=== PATIENT | male | born 1960 | race Caucasian/White ===

== ENCOUNTER 2018-12-07 11:31 | Outpatient (CLI) | payer OTHER ==
[~2018-12-07] VITALS: Ht 172.7 cm; Wt 84.5 kg
--- NOTE | ~2018-12-07 | HEMODYNAMI ---
PATIENT:VIKI ALBA MEDICAL RECORD: [id number] : 62 LOCATION:[facility] ADMISSION DATE: 12/07/18 Generatedon:12/07/201814:41 Patient name: VIKI ALBA Patient #: [id number] : 1960 Date of study: 12/07/2018 Page: Of Hemodynamic Procedure Report Patient Data Patient Demographics Procedure consent was obtained First Name: VIKI Gender: Male Last Name: ANJALI : 1960 Middle Initial: ERNIE Age: 58 year(s) Patient #: [id number] Race: SSN: [id number] Additional ID: [id number] Contact details Address: [address] [place] [address] State: [place] City: [place] Zip code: [address] Admission Admission Data Admission Date: 12/07/2018 Admission Time: 11:31 Arrival Date: 12/07/2018 Arrival Time: 14:00 Admit Source: Other Insurance Payor: Private health insurance Height (in.): 66 BSA: 1.95 (m2) Height (cm.): 167.64 BMI: 30.51 (kg/m2) Weight (lbs.): 189 Weight (kg.): 85.73 Lab Results Lab Result Date: 12/07/2018 Lab Result Time: 0:00 Biochemistry Name Units Result Min Max BUN mg/dl 15 --(--*-)-- 7 18 Creatinine mg/dl 1.4 --(----)*- 0.6 1.3 eGFR ml/min 55 *-(----)-- 90 120 NONAFRICAN CBC Name Units Result Min Max Hemoglobin g/dl 14.8 --(-*--)-- 13.5 17.5 Procedure Procedure Types Cath Procedure Diagnostic Procedure LHC LHC w/Coronaries Sedation Charges Moderate Sedation up to 15 minutes PCI Procedure Coronary Stent Coronary Stent Initial Procedure Description Procedure Date Procedure Date: 12/07/2018 Procedure Start Time: 14:16 Procedure End Time: 14:39 Procedure Staff Name Function Francis Chen MD Performing Physician Carmelina Gunderson RT Monitor Noy Elizabeth RT Scrub Yvonne Mares RN Nurse Indication Angina Procedure Data Cath Procedure Fluoroscopy Diagnostic fluoroscopy Total fluoroscopy Time: 5.8 time: 5.8 min min Diagnostic fluoroscopy Total fluoroscopy dose: dose: 1157 mGy 1157 mGy Contrast Material Contrast Material Type Amount (ml) Isovue 300 121 Entry Location Entry Primary Successful Side Size Upsize Upsize Entry Closure Gonsalves ccessful Closure Location (Fr) 1 (Fr) 2 (Fr) Remarks Device Remarks Radial Right 6 Fr Mechanical artery Short Compression Estimated blood loss: 5 ml Diagnostic catheters Device Type Used For End Catheter Placement DIAGNOSTIC Robert 110cm Multi-vessel 5Fr catheter ([id number]) Angiography Procedure Complications No complications Procedure Medications Medication Administration Route Dosage 0.9% NaCl I.V. 100 ml/hr Oxygen etCO2 Nasal cannula 2 l/min Lidocaine 2% added to field 20 Heparin Flush Bag added to field 2 bags (1000units/500ml NS) Radial Cocktail added to field 1 syringe (Verapamil 2mg/Nitro 400mcg/Heparin 1500units) Versed I.V. 2 mg Fentanyl I.V. 100 mcg Heparin Bolus I.V. 9500 units Plavix P.O. 600 mg Hemodynamics Rest BSA: 1.95 (m2) HGB: 14.8 (g/dl) O2 Consumption: Estimated: 215.64 (ml/min) O2 Co nsumption indexed: Estimated:110.58 (ml/min/m) Heart Rate: 50 (bpm) Pressure Samples Time Site Value (mmHg) Purpose Heart Use Rate(bpm) 14:20 LV 127/-14,4 Snapshot 76 Gradients Valve Time Site Site Mean SEP/DFP Peak To Heart Use 1 2 (mmHg) (sec/min) Peak Rate (mmHg) (bpm) Aortic 14:21 LV AO 77 Snapshots Pre Cath Intra NCS Post Cath Vital Signs Time Heart Resp SPO2 etCO2 NIBP (mmHg) Rhythm Pain Sedation Rate (ipm) (%) (mmHg) Status Level (bpm) 13:55:29 51 17 98 19 127/87(105) SB 0 (11) 10(A) , No pain 13:59:35 58 14 98 24 121/83(98) SB 0 (11) 10(A) , No pain 14:03:41 57 12 98 27.8 122/81(93) SB 0 (11) 10(A) , No pain 14:07:46 61 12 97 27 120/76(88) NSR 0 (11) 9(A) , No pain 14:11:54 59 12 98 27.8 120/73(95) SB 0 (11) 9(A) , No pain 14:15:58 58 12 96 26.2 114/83(94) SB 0 (11) 9(A) , No pain 14:20:06 71 15 96 25.5 101/66(79) NSR 0 (11) 9(A) , No pain 14:24:05 64 14 98 24.7 107/71(85) NSR 0 (11) 9(A) , No pain 14:28:09 56 13 98 25.5 118/70(91) SB 0 (11) 9(A) , No pain 14:32:17 60 12 96 27 114/72(90) NSR 0 (11) 9(A) , No pain 14:36:23 54 11 97 24.7 115/74(89) NSR 0 (11) 10(A) , No pain Medications Time Medication Route Dose Verified Delivered Reason Not es Effectiveness by by 13:58:27 0.9% NaCl I.V. 100 Francis Yvonne used for ml/hr Gustavo Mares flagger 13:58:33 Oxygen etCO2 2 l/min Francis Yvonne used for Nasal Gustavo Mares procedure cannula RN 13:58:39 Lidocaine 2% added 20ml Francis Francis for local to vial Gustavo Chen MD anesthetic field 13:58:43 Heparin Flush added 2 bags Francis Francis used for Bag to Gustavo Chen MD procedure (1000units/500ml field NS) 13:58:48 Radial Cocktail added 1 Francis Francis used for (Verapamil to syringe Gustavo Chen MD procedure 2mg/Nitro field 400mcg/Heparin 1500units) 14:03:40 Versed I.V. 2 mg Francis Yvonne for sedation Gustavo Mares RN 14:03:51 Fentanyl I.V. 100 mcg Francis Yvonne for sedation Gustavo Mares RN 14:29:43 Heparin Bolus I.V. 9500 Francis Yvonne for hugo ified units Gustavo Mares anticoagulation with Dr. EMELY Chen 14:30:02 Plavix P.O. 600 mg Francis Yvonne for Gustavo Mares antiplatelet RN therapy Procedure Log Time Note 13:39:15 Informed consent obtained and on chart 13:39:21 Diagnostic Cath Status : Elective 13:40:25 Noy Elizabeth RT(R) sent for patient. Start room use. 13:40:26 Indication : Angina 13:42:14 Admit Source: Other 13:42:16 Arrival Date: 12/07/2018 2:00:00 PM 13:42:26 Insurance Payor : Private health insurance 13:42:38 Patient Height : 66 inches 13:42:42 Patient Weight : 189 lbs 13:45:34 Lab Result : BUN 15 mg/dl 13:45:34 Lab Result : eGFR NONAFRICAN 55 ml/min 13:45:34 Lab Result : Creatinine 1.4 mg/dl 13:45:34 Lab Result : Hemoglobin 14.8 g/dl 13:45:42 3a) 45-59 Moderately reduced kidney function. 13:45:53 Maximum allowable contrast dose (3.7 X eGFR X 0.75)152 ml. 13:46:02 ACC Patient presents with Stable Angina CCS Anginal Class 2--Slight limitation of ordinary activity. 13:46:08 ACCPatient has been prescribed/administered the following anti-anginal medication within the last 2 weeks: DOMENICO-Inhibitor 13:47:23 Procedure Status Elective Heart Cath (OP). 13:47:33 Time tracking: Regular hours (M-F 7:00 - 5:00) 13:47:37 Plan of Care:Hemodynamics will remain stable., Cardiac rhythm will remain stable., Comfort level will be maintained., Respiratory function will remain adequate., Patient/ family verbilizes understanding of procedure., Procedure tolerated without complication., Recovers from procedure without complications.. 13:48:17 Patient received from Pre/Post Procedure Room to [facility] 2 Alert and oriented. Tansferred to table in Supine position. 13:48:18 Warm blankets applied, and lavelle hugger turned on for patient comfort. 13:48:18 Correct patient and procedure confirmed by team. 13:48:19 ECG and BP/O2 sat monitors applied to patient. 13:48:20 Vital chart was started 13:56:10 Baseline sample Acquired. 13:56:14 Rhythm: sinus rhythm 13:56:17 Full Disclosure recording started 13:56:21 H&P Date Dictated: 12/07/2018 Within 30 days and on chart., H&P Addendum completed by physician on day of procedure. (MUST COMPLETE FOR ALL OUTPATIENTS). 13:56:23 Pre-procedure instructions explained to patient. 13:56:24 Pre-op teaching completed and patient verbalized understanding. 13:56:33 Family in patients room. 13:56:34 Patient NPO since Midnight. 13:56:35 Is the patient allergic to Iodine/contrast media? No. 13:56:37 Was the patient premedicated? No 13:56:38 Is patient on blood thinner?No 13:56:39 Patient diabetic? No. 13:56:41 Previous problem with sedation/anesthesia? No ? 13:56:43 Snore? Yes 13:56:44 Sleep apnea? No 13:56:44 Deviated septum? No 13:56:45 Opens mouth fully? Yes 13:56:46 Sticks out tongue? Yes 13:56:50 Airway obstruction? No ? 13:56:53 Dentures? No ? 13:56:57 Pre procedure: right dorsailis pedis pulse 2+ Normal; easily identifiable; not easily obliterated 13:56:59 Pre procedure: left dorsailis pedis pulse 2+ Normal; easily identifiable; not easily obliterated 13:57:01 Patient pain scale 0/10 ?. 13:57:08 IV patent on arrival in left forearm with 0.9% NaCl at [facility]. 13:57:10 Lab results completed and on chart. 13:57:15 Right Radial & Right Groin area was prepped with chlora-prep and draped in sterile fashion 13:57:16 Alarms reviewed by R. N. 13:57:16 Sharps counted by scrub and verified by R.N. 13:58:27 0.9% NaCl 100 ml/hr I.V. was administered by Yvonne Mares RN; used for procedure; 13:58:33 Oxygen 2 l/min etCO2 Nasal cannula was administered by Yvonne Mares RN; used for procedure; 13:58:39 Lidocaine 2% 20ml vial added to field was administered by Francis Chen MD; for local anesthetic; 13:58:43 Heparin Flush Bag (1000units/500ml NS) 2 bags added to field was administered by Francis Chen MD; used for procedure; 13:58:48 Radial Cocktail (Verapamil 2mg/Nitro 400mcg/Heparin 1500units) 1 syringe added to field was administered by Francis Chen MD; used for procedure; 14:01:08 Physician arrived 14:01:08 --------ALL STOP TIME OUT------ 14:01:09 Final Timeout: patient, procedure, and site verified with staff and physician. All members of the team are in agreement. 14:01:10 Right Radial & Right Groin site verified by team. 14:01:14 Fire Safety Assessment: A--An alcohol-based skin anteseptic being used preoperatively., C--Open oxygen or nitrous oxide is being used., D--An ESU, laser, or fiber-optic light is being used. 14:01:17 Physical assessment completed. ASA score P 2 - A patient with mild systemic disease as per Francis Chen MD. 14:01:22 Sedation plan: IV Moderate Sedation Medication:Versed, Fentanyl 14:01:39 Use device set Radial Dx or PCI 14:01:40 ACIST Syringe (03439) opened to sterile field. 14:01:41 Medline Cath Pack ([id number]) opened to sterile field. 14:01:41 Bag Decanter () opened to sterile field. 14:01:42 ACIST Hand Control (82599) opened to sterile field. 14:01:44 ACIST Manifold (59964) opened to sterile field. 14:01:45 Tegaderm 4 x 4 (1626W) opened to sterile field. 14:01:46 MBrace Wrist Support (412257201) opened to sterile field. 14:01:48 NEEDLE Cook 21G 4cm Radial (U11770) opened to sterile field. 14:01:50 EMERALD Guide Wire (502-224) opened to sterile field. 14:01:51 SHEATH 6FR RAIN (7487141) opened to sterile field. 14:03:40 Versed 2 mg I.V. was administered by Yvonne Mares RN; for sedation; 14:03:51 Fentanyl 100 mcg I.V. was administered by Yvonne Mares RN; for sedation; 14:16:39 Procedure started. 14:16:43 Local anesthetic to right radial artery with Lidocaine 2% by Francis Chen MD.INITIAL ACCESS ONLY 14:16:53 A 6 Fr Short sheath was inserted into the Right Radial artery 14:18:49 A DIAGNOSTIC Robert 110cm 5Fr catheter (295888) was advanced over the wire and used for Multi-vessel Angiography. 14:20:37 LV hemodynamics recorded. 14:20:38 LV gram done using JACOBS 14:20:42 Injector settings: Ml/sec: 5, Volume: 15, 14:20:54 EF : 60 % 14:21:59 LCA angiography performed. 14:22:01 Injector settings: Ml/sec: 3, Volume: 6, 14:25:03 RCA angiography performed. 14:25:06 Injector settings: Ml/sec: 3, Volume: 6, 14:25:42 Catheter removed. 14:25:42 Proceeding to intervention. 14:26:04 INFLATOR Merit BasixCompak (YU5354) opened to sterile field. 14:26:04 BMW 300cm [place] 2 J wire ([id number]) opened to sterile field. 14:26:05 GUIDE 6FR XBLAD 3.5 catheter ([id number]) opened to sterile field. 14:26:17 ACCDominant side:Right 14:26:25 ACC Pre-intervention BENITA Flow is 3. 14:26:45 Pre PCI Site: [place] pLAD has 80% stenosis. 14:26:56 6 Fr xblad 3.5 guide catheter was inserted over the wire 14:27:50 TUBING High Pressure Extension Tubing (Gustavo) ([id number]) opened to sterile field. 14:28:01 6 Fr xblad 3.5 guide catheter was inserted over the wire 14:28:27 bmw wire advanced. 14:29:43 Heparin Bolus 9500 units I.V. was administered by Yvonne Mares RN; for anticoagulation; verified with Dr. Chen 14:30:02 Plavix 600 mg P.O. was administered by Yvonne Mares RN; for antiplatelet therapy; 14:36:56 Place stent Inflation Number: 1 A COBRA RX 3.0 X 24 Stent was prepped and advanced across the Prox LAD 80. The stent was deployed at 12 ALFREDO for 0:10 (min:sec) . 14:37:25 Stent catheter was removed intact over wire. 14:37:26 Wire removed. 14:37:26 Guide catheter removed. 14:37:36 ZEPHYR REGULAR TR BAND (671112) opened to sterile field. 14:37:45 Sheath removed intact; hemostasis achieved with Mechanical Compression to the Right Radial artery. 14:37:52 Procedure ended.(Physican Out) 14:38:11 Fluoroscopy time 05.80 minutes. 14:38:38 Fluoroscopy dose: 1157 mGy 14:38:38 Flurop Dose total: 1157 14:38:43 Dose Area Product 77640 mGy/cm. 14:38:47 Contrast amount:Isovue 300 121ml. 14:38:54 Sharps counted by scrub and verified by R.N. 14:38:57 Dawson band inflated with 10cc of air. 14:38:58 Insertion/operative site no bleeding no hematoma. 14:39:03 Post right radial artery:stable 14:39:05 Post Procedure Pulses reassessed and unchanged 14:39:08 Post procedure rhythm: unchanged. 14:39:11 Estimated blood loss: 5 ml 14:39:13 Post procedure instruction explained to patient.Patient verbalizes understanding. 14:39:13 Patient needs reinforcement of post procedure teaching. 14:39:24 Procedure type changed to Cath procedure, Diagnostic procedure, LHC, LHC w/Coronaries, Sedation Charges, Moderate Sedation up to 15 minutes, PCI procedure, Coronary Stent, Coronary Stent Initial 14:39:25 Procedure and supply charges have been captured, reviewed, submitted and are correct. 14:39:31 Procedure Complication : No complications 14:39:33 Vital chart was stopped 14:39:34 See physician's report for complete and final results. 14:39:37 Report given to Pre/Post Procedure Room. 14:39:45 Patient transfered to Pre/Post Procedure Room with Stretcher. 14:39:47 Procedure ended. 14:39:47 Full Disclosure recording stopped 14:39:56 ACC-PCI Only Patient was given prescriptions, or instructed by Francis Chen MD to start/continue the following medications upon discharge: Plavix 14:40:03 End room use (Document Last) Intervention Summary Intervention Notes Time ActionType Lesion and Equipment Action# Pressure Duration Attributes Used 14:36:56 Place stent Prox LAD COBRA RX 1 12 00:10 3.0 X 24 Stent Device Usage Item Name Manufacture Quantity Catalog Hospital Part Current Minimal Lot# / Number Charge Number Stock Stock Serial# Code ACIST Syringe Acist 1 30646 424758 260599 210896 20 (20295) Medical Systems Inc Medline Cath Medline 1 [id number] 632793 84202 575937 5 Pack ([id number]) Bag Decanter Microtek 1 2001S 929388 50493 490781 5 () Medical Inc. ACIST Hand Acist 1 12109 647772 685004 831624 5 Control Medical (32756) Systems Inc ACIST Manifold Acist 1 03784 683706 948796 288147 5 (60240) Medical Systems Inc Tegaderm 4 x 4 3M 1 1626W 290702 673209 008447 5 (1626W) MBrace Wrist Advanced 1 140-0250-00 176098 65671 639880 5 Support Vascular ([id number]) Dynamics NEEDLE Altruik Medical 1 S06382 958808 827736 249581 5 21G 4cm Radial (N48511) EMERALD Guide Cardinal 1 502-455 017700 756901 305166 5 Wire (502-455) Health SHEATH 6FR Cardinal 1 8222106 365600 5055670 507602 5 RAIN (6512828) Health DIAGNOSTIC Terumo 1 40-5023 496957 279094 188165 5 Robert 110cm 5Fr catheter (849023) INFLATOR Merit Merit 1 DR9975 580095 970372 027261 15 BasixCompak Medical (QW5907) BMW 300cm Pool 1 [id number] 638896 665025 336550 5 [place] 2 J Vascular wire (4939601W) GUIDE 6FR Cardinal 1 [id number] 763157 577245 578965 10 XBLAD 3.5 Health catheter (63606105) TUBING High Merit 1 [id number] 556072 80359 486765 10 Pressure Medical Extension Tubing (Chen) ([id number]) COBRA RX 3.0 X Celonova 1 802987 [id number] 949375 7 [id number] 24 stent Biosciences () ZEPHYR REGULAR Cardinal 1 479121 152035 5602388 789209 5 TR BAND [facility] (487932) Signature Audit [place] Stage Time Signature Unsigned Intra-Procedure 12/07/2018 Carmelina Gunderson 2:41:24 PM RT(R) Signatures Performing Physician : Signature : Francis Chen MD Date : Time : Monitor : Carmelina Gunderson RT Signature : Date : Time : Nurse : Yvonne Mares RN Signature : Date : Time : [facility] [address] [place] [address]
[~2018-12-07 11:31] MED LIST: ASPIRIN EC81 M1 PO; LISINOPRIL5 MG PO; MELOXICAM PO; MOBIC7.5 MG PO; NEURONTIN600 MG PO
[2018-12-07] MEDS ORDERED: OMEPRAZOLE20 M1 PO (11:54)
[2018-12-07] MEDS ORDERED: CYMBALTA30 MG PO (11:55)
[2018-12-07] MEDS ORDERED: ASPIRIN81 MG PO (11:55)
[2018-12-07 12:31] LABS: BASOPHILS 0.2 % (0-2); EOSINOPHILS 1.6 % (0-7); HEMATOCRIT 41.2 % (42.0-54.0); HEMOGLOBIN 14.8 g/dL (13.5-17.5); MCH 32.4 pg (26.0-34.0); MCHC 35.9 g/dL (31.0-37.0); MCV 90.2 fL (80.0-100.0); MEAN PLATELET VOLUME 9.1 fL (7.4-10.4); MONOCYTES 11.7 % (2-11); NEUTROPHILS 57.5 % (40-80); PLATELET COUNT 192 10x3/uL (130-400); RBC 4.57 10x6/uL (4.20-6.10); RDW 12.8 % (11.5-14.5); WBC 4.5 10x3/uL (4.8-10.8)
[2018-12-07 12:35] VITALS: BP 132/84; Ht 172.7 cm; Wt 84.5 kg
[2018-12-07 12:44] LABS: ANION GAP 12.3 mmol/L (8-16); CALCIUM 8.9 mg/dL (8.5-10.1); CARBON DIOXIDE 30.1 mmol/L (21.0-32.0); CHOL - HDL RATIO 4.6 ratio (2.3-4.9); CREATININE - SERUM 1.4 mg/dL (0.6-1.3); LDL-HDL RATIO 3.2 ratio (1.5-3.5); POTASSIUM - SERUM 4.4 mmol/L (3.5-5.1)
--- NOTE | 2018-12-07 14:50 | NUR ---
PT RECEIVED VIA STRETCHER FROM UTILITY WORKER PRODUCTION POST PROCEDURE. PT SLEEPING BUT VERBALLY AROUDABLE. IV PATENT INFUSING VIA ORDERS TO L ARM. HR SINUS EMILI, RATE 47, BP 136/79, O2 SAT 97 ON 2L/NC. ZEPHYR BAND AND IMMOBILIZER TO R WRIST, DRESSING CDI NO BLEEDING OR HEMATOMA NOTED. ARM PINK AND WARM, CAP REFILL BRISK. CALL LIGHT IN REACH. FAMILY IN WAITING ROOM
[2018-12-07] MEDS ORDERED: PLAVIX75 MG PO (14:57)
--- NOTE | 2018-12-07 15:18 | NUR ---
PT RESTING W EYES CLOSED, DENIES PAIN OR DISCOMFORT. Z BAND AND IMMOBILIZER IN PLACE, DRESSING CDI NO BLEEDING OR HEMATOMA NOTED. ARM PINK AND WARM, CAP REFILL BRISK. HR 47, BP 135/75, O2 SAT 98 ON 2L/NC. CALL LIGHT IN REACH.
--- NOTE | 2018-12-07 16:00 | NUR ---
PT RESTING COMFORTABLY, PO FLUIDS GIVEN. HR 46, BP 134/75, O2 SAT 98 ON 2L/NC. Z BAND AND IMMOBILIZER REMAIN IN PLACE, DRESSING CDI NO BLEEDING OR SWELLING NOTED. ARM PINK AND WARM, CAP REFILL BRISK. IV PATENT INFUSING VIA ORDERS. CALL LIGHT IN REACH. PT DENIES PAIN OR NEEDS AT THIS TIME.
--- NOTE | 2018-12-07 16:36 | NUR ---
PT AWAKE BUT STILL DROWSY, O2 REMOVED, SAT 97 ON ROOM AIR. CRACKERS AND COLA SERVED. Z BAND AND IMMOBILIZER IN PLACE, DRESSING REMAINS CDI NO BLEEDING OR HEMATOMA NOTED. CALL LIGHT IN REACH, FRIEND AT BEDSIDE. PT DENIES OTHER NEEDS.
--- NOTE | 2018-12-07 16:50 | NUR ---
JASON VINCENT, RN FOR CARDIAC REHAB IN TO VISIT PT REGARDING FOLLOW UP CARE. [address], DRESSING CDI NO BLEEDING OR HEMATOMA NOTED. ARM PINK AND WARM, CAP REFILL BRISK. VSS. TOLERATING PO SOLIDS AND FLUIDS W/O NAUSEA. CALL LIGHT IN REACH, FRIEND REMAINS AT BS
--- NOTE | 2018-12-07 17:30 | NUR ---
2CC AIR REMOVED FROM Z BAND, NO BLEEDING OR SWELLING NOTED TO SITE. HR 77, BP 133/85, O2 SAT 95 ON ROOM AIR. ARM PINK AND WARM, CAP REFILL BRISK. CALL LIGHT IN REACH, DENIES NEEDS
--- NOTE | 2018-12-07 18:00 | NUR ---
DISCHARGE INSTRUCTIONS REVIEWED W PT AND STRESSED IMPORTANCE OF GETTING PRESCRIPTION OF PLAVIX FILLED AND TO START TAKING IT TOMORROW. HE VERBALIZED UNDERSTANDING. 5 ADD'L CC AIR REMOVED FROM Z BAND, NO BLEEDING OR SWELLING NOTED. VSS.
--- NOTE | 2018-12-07 18:34 | NUR ---
181 ALL AIR HAS BEEN WEANED FROM Z BAND WITH NO BLEEDING NOTED. FINGERS WARM AND CAP REFILL IS BRISK. PT DENIES ANY NV DEFICIT TO HAND. PT IS ALERT AND DENIES ANY C/O. IV DC'D WITH CATH INTACT AND PT DRESSING FOR DC WITH ASSIST. 183 PT HAS AMBULATED TO BATHROOM AND VOIDED QS. 2X2 AND TEGADERM ARE CDI TO RIGHT WRIST, WRIST IMMOBILIZER IN PLACE. RADIAL PULSE PALPABLE, FINGERS WARM AND CAP REFILL IS BRISK. PT DENIES ANY NV DEFICIT TO HAND. PT HAS ALL DC INSTRUCTIONS AND PERSONAL BELONGINGS. PT AND BROTHER VERBALIZE UNDEERSTANDING FOR PT TO START PLAVIX TABLETS TOMORROW. PT HAS PLAVIX PRESCRIPTION AND BROTHER STATES HE WILL DRIVE PT TO THE ID CLINIC IN [place] TO GET RX FILLED TOMORROW. PT ESCORTED TO [employer] WITH BROTHER DRIVING HIM HOME.
== END 2018-12-07 18:30 | disposition home or self-care (01) ==
LOC: D.CATH 11:31
PROVIDERS: ATTEND Internal Medicine Cardiovascular Disease
DX: I25.110 Atherosclerotic heart disease of native coronary artery with unstable angina pectoris (principal)

== ENCOUNTER → 2019-09-30 08:43 | Outpatient (CLI) | payer OTHER ==
[2018-12-07 12:35] VITALS: BMI 28.3
[~2019-09-30 08:43] MED LIST changes: +ASPIRIN81 MG PO; +CYMBALTA30 MG PO; +OMEPRAZOLE20 M1 PO; +PLAVIX75 MG PO
== END | disposition home or self-care (01) ==
LOC: D.NM 08:43
PROVIDERS: ATTEND Nurse Practitioner Family
DX: R07.89 Other chest pain (principal); M54.2 Cervicalgia; I25.83 Coronary atherosclerosis due to lipid rich plaque; I10 Essential (primary) hypertension; E78.5 Hyperlipidemia, unspecified; F17.220 Nicotine dependence, chewing tobacco, uncomplicated; F60.9 Personality disorder, unspecified; F95.9 Tic disorder, unspecified; B35.3 Tinea pedis